=== PATIENT | female | born 1970 | race African-American/Black ===

== ENCOUNTER 2018-09-20 21:12 | Emergency (ER) | payer SELFPAY ==
[~2018-09-20] VITALS: Ht 167.6 cm; Wt 113.0 kg
[2018-09-20 21:14] VITALS: BP 141/86
== END 2018-09-21 02:00 | disposition left against medical advice (07) ==
LOC: ER 21:12
DX: R53.1 Weakness (principal); R00.2 Palpitations; Z53.21 Procedure and treatment not carried out due to patient leaving prior to being seen by health care provider
CPT/HCPCS: 93005